=== PATIENT | female | born 1985 | race Caucasian/White ===

== ENCOUNTER 2021-10-05 14:35 | Emergency (ER) | payer OTHER ==
[2021-10-05 14:45] VITALS: BP 117/76; PULSE 101; RESP 20; TEMP 98
--- NOTE | 2021-10-05 15:48 | ED ---
General Adult HPI - General Chief complaint: Alcohol Stated complaint: Alcohol Time Seen by Provider: 10/05/21 14:47 Source: patient, RN notes reviewed, old records reviewed Mode of arrival: ambulatory Limitations: no limitations - History of Present Illness Initial comments: 36-year-old female presenting for alcohol intoxication. Patient at this hospi ralph AGAINST MEDICAL ADVICE one hour prior to return to the emergency department. She had been found in the parking lot after drinking liquor. Patient admits to this. She is not suicidal or homicidal. She states that she was not receiving adequate medication. I did discuss case with the admitting physician who states that there was no signs of alcohol withdrawal throughout the past 48 hours and the patient was not requiring benzodiazepines according to CIWA scale. - Related Data Home Medications Medication Instructions Recorded Confirmed Dextroamphetamine/Amphetamine 20 mg PO TID 10/02/21 10/02/21 [Adderall] Diphenoxylate HCl/Atropine 1 tab PO QID PRN 10/02/21 10/02/21 [Lomotil 2.5-0.025 mg Tablet] Doxepin HCl [SINEquan] 150 mg PO HS 10/02/21 10/02/21 Ergocalciferol [Vitamin D2 (1250 1,250 mcg PO WEEKLY 10/02/21 10/02/21 Mcg = 28183 Iu)] Gabapentin [Neurontin] 300 mg PO TID 10/02/21 10/02/21 Levothyroxine Sodium [Synthroid] 50 mcg PO [id number] 10/02/21 10/02/21 Levothyroxine Sodium [Synthroid] 100 mcg PO HENDRICKS 10/02/21 10/02/21 Loratadine [Claritin] 10 mg PO DAILY 10/02/21 10/02/21 Lurasidone HCl [Latuda] 60 mg PO HS 10/02/21 10/02/21 Methadone HCl [Methadone Intensol] 120 mg PO DAILY 10/02/21 10/02/21 Mirtazapine [Remeron] 15 mg PO HS 10/02/21 10/02/21 Norethindrone-E.estradiol-Iron 1 tab PO DAILY 10/02/21 10/02/21 [Junel Fe 1 mg-20 Mcg Tablet] Pantoprazole [Protonix] 40 mg PO BID 10/02/21 10/02/21 Allergies Allergy/AdvReac Type Severity Reaction Status Date / Time buprenorphine [From Suboxone] Allergy Anaphylaxis Verified 10/05/21 14:45 iron Allergy Anaphylaxis Verified 10/05/21 14:45 naloxone [From Suboxone] Allergy Anaphylaxis Verified 10/05/21 14:45 NSAIDS (Non-Steroidal Allergy Anaphylaxis Verified 10/05/21 14:45 Anti-Inflamma Penicillins Allergy Unknown Verified 10/05/21 14:45 Childhood Sulfa (Sulfonamide Allergy Unknown Verified 10/05/21 14:45 Antibiotics) Childhood Review of Systems ROS Statement: Those systems with pertinent positive or pertinent negative responses have been documented in the HPI. ROS Other: All systems not noted in ROS Statement are negative. Past Medical History Past Medical History: Seizure Disorder Additional Past Medical History / Comment(s): endometreosis, bipolar, ADHD. spinal cord injury/head injury that occured 15 years ago. 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 States anaphlactic reaction to iron infusion. Past Psychological History: ADD/ADHD, Anxiety, Bipolar Smoking Status: Never smoker Past Alcohol Use History: Abuse, Daily, Heavy Past Drug Use History: None Reported General Exam Limitations: no limitations General appearance: alert, appears intoxicated Head exam: Present: atraumatic, normocephalic Eye exam: Present: normal appearance, PERRL ENT exam: Present: normal exam Neck exam: Present: normal inspection. Absent: tenderness, meningismus Respiratory exam: Present: normal lung sounds bilaterally. Absent: respiratory distress, wheezes Cardiovascular Exam: Present: regular rate, normal rhythm GI/Abdominal exam: Present: soft. Absent: distended, tenderness, guarding Extremities exam: Present: normal inspection, normal capillary refill. Absent: pedal edema Back exam: Present: full ROM Neurological exam: Present: alert, oriented X3, CN II-XII intact. Absent: motor sensory deficit Psychiatric exam: Present: normal affect, normal mood Skin exam: Present: warm, dry, intact. Absent: cyanosis, diaphoretic Course Vital Signs 10/05/21 14:42 Temperature 98.0 F Pulse Rate 101 H Respiratory 20 Rate Blood Pressure 117/76 O2 Sat by Pulse 95 Oximetry - Reevaluation(s) Reevaluation #1: 10/05/21 1830 Patient clinically sober awaiting disposition with [facility]. Medical Decision Making - Medical Decision Making 30 sexual female presenting with acute alcohol intoxication. Initial breath alcohol is 0.130. She is observed in the emergency department. I did discuss case with the admitting physician. There was no signs of alcohol withdrawal. Disposition Clinical Impression: Alcoholic intoxication Disposition: Left Against Medical Advice Condition: Fair Instructions (If sedation given, give patient instructions): Alcohol Intoxication (ED) Additional Instructions: Please follow up with your primary care physician and [facility]. Is patient prescribed a controlled substance at d/c from ED?: No Referrals: None,Stated [Primary Care Provider] - 1-2 days
== END 2021-10-05 21:00 | disposition left against medical advice (07) ==
LOC: EC 14:35
DX: F10.129 Alcohol abuse with intoxication, unspecified (principal); G40.909 Epilepsy, unspecified, not intractable, without status epilepticus; F31.9 Bipolar disorder, unspecified; F41.9 Anxiety disorder, unspecified; F90.9 Attention-deficit hyperactivity disorder, unspecified type; Z79.899 Other long term (current) drug therapy; Y90.9 Presence of alcohol in blood, level not specified
CPT/HCPCS: 82075; 99284